=== PATIENT | male | born 1980 | race Caucasian/White ===

== ENCOUNTER 2017-05-28 11:53 | Day surgery (SDC) | payer MEDICARE ==
[2017-05-27 12:26] VITALS: BMI 25.8
--- NOTE | 2017-05-28 15:05 | MRI ---
MRI LUMBAR SPINE NONCONTRAST: HISTORY: Low back pain with left leg radiculopathy. FINDINGS: The conus medullaris has a normal appearance. Vertebral body height and alignment are maintained. B one marrow signal is within normal limits. T12-L1, L1-2, L2-3, L3-4: Disk hydration is maintained. The central canal and neural foramen are pa tent. L4-5: There is minimal disk bulge. Thecal sac remains patent. Degenerative changes result in moder ate stenosis of each neural foramen. L5-S1: A small posterior disk protrusion contacts but does not significantly compress the thecal sac . Degenerative changes result in mild stenosis of each neural foramen. IMPRESSION: Mild degenerative changes of the lower lumbar spine, with central canal and foraminal stenosis as det norma above. No focal nerve root compression is apparent. POS: [facility]
== END 2017-05-28 16:08 | disposition home or self-care (01) ==
LOC: SDC/OP 11:53
PROVIDERS: ATTEND Neurological Surgery
DX: M54.16 Radiculopathy, lumbar region (principal); Z79.899 Other long term (current) drug therapy
CPT/HCPCS: 72148